=== PATIENT | female | born 1990 | race Caucasian/White ===

== ENCOUNTER → 2016-06-01 | Outpatient (CLI) | payer BC | LOC: MOB LAB 10:51 | PROVIDERS: ATTEND Obstetrics & Gynecology | DX: Z36 Encounter for antenatal screening of mother (principal) | CPT/HCPCS: 87491; 87591 ==

== ENCOUNTER → 2016-06-07 | Outpatient (CLI) | payer BC ==
--- NOTE | 2016-06-07 12:18 | DI ---
OBSTETRICAL ULTRASOUND, 06/07/2016 9:55 AM: Clinical History: Antepartum screening. Previous Exam: None at this facility for this . ADJUSTED DATE FROM EARLY OBUS: 12/25/2015. There is a single live IUP currently in breech presentation. Amnionic fluid content is normal. activity is observed as follows: Cardiac and extremity. The placenta is anterior corpus and Grade 1. heart rate is 138 beats/minute and regular. There is a 3 vessel cord. A 4 chamber heart view is obtained. The aortic arch and descending aorta are normal. Views of the spine were not optimal becau se of the lie. BPD, HC, AC, and FL measurements are 51 mm, 213 mm, 184 mm, and 43 mm, respectiv osman. These measurements correspond to EGA values of 21 weeks 4 days, 23 weeks 3 days, 23 weeks 2 days and 24 weeks one day, respectively. Composite EGA is 23 weeks one day. The US EDC is 10/03/2016. EDC by adjusted date from early OBUS is 09/30/2016. Readin. Single live fetus with breech presentation and normal amniotic fluid content. Placenta is anterio r corpus and grade 1. 2. The composite EGA is 23 weeks one day with an ultrasound EDC of 10/03/2016. The EDC is 09/30/2016 a stone the adjusted LMP of 12/25/2015. 3. Scans of the spine are not optimal because of the lie. These images should be repeate d in order to complete the antepartum screening that is otherwise normal.
== END ==
LOC: US 09:47
PROVIDERS: ATTEND Obstetrics & Gynecology
DX: Z36 Encounter for antenatal screening of mother (principal); Z3A.23 23 weeks gestation of pregnancy
CPT/HCPCS: 76805

== ENCOUNTER → 2016-06-28 | Outpatient (CLI) | payer BC ==
[2016-06-28 09:44] VITALS: RESP 18
[2016-06-28 10:26] VITALS: TEMP 98.7
--- NOTE | 2016-06-28 10:29 | DI ---
US OB , LIMITED,06/28/2016 9:40 AM: Clinical History: Bleeding Previous Exam: None at this facility. Findings: Multiple grayscale and color Doppler sonographic images are obtained through the pelvis demonstrating a single live intrauterine gestation with detected Doppler heart tones of 142 beats per minute. A fo ur-chamber heart is noted. The placenta is anterior and within normal limits. The fetus lies in vertex presentation. The inferior margin of the placenta is normal and lies 10 cm from the internal cervical os. Impression: A single live intrauterine gestation without gross abnormalities.
[2016-06-28 10:57] LABS: HEMATOCRIT 38.5 % (37.0-47.0); MEAN CORPUSCULAR HEMOGLOBIN 30.4 PG (27-31); MEAN CORPUSCULAR HGB CONC 33.8 g/dL (33-37); MEAN PLATELET VOLUME 11.2 FL (7.4-12.2); RDW COEFFICIENT OF VARIATION 14.1 % (11.5-14.5); RED BLOOD COUNT 4.28 10^6/uL (4.20-5.40); WHITE BLOOD COUNT 9.09 10^3/uL (4.8-10.8)
[2016-06-28 11:10] LABS: ASPARTATE AMINO TRANSFERASE 23 IU/L (8-39); BILIRUBIN,TOTAL 0.3 mg/dL (0.3-1.2); BLOOD UREA NITROGEN 5 mg/dL (7-22); BUN/CREATININE RATIO 8.33 (6-20); CHLORIDE 106 meq/L (98-112); CREATININE 0.6 mg/dL (0.50-1.20); EST GLOMERULAR FILTRATION > 60 (>60 ml/min/1.73m(2)); GLUCOSE 70 mg/dL (78-110); POTASSIUM 3.8 meq/L (3.8-5.2); SODIUM 135 meq/L (135-145); TOTAL PROTEIN 6.3 g/dL (6.1-8.0)
--- NOTE | 2016-06-30 06:21 | PDOC(PROG) ---
Intake - - Reason for Visit/Chief Complaint: Bi-weekly NST Admitted From: Home - Estimated Due Date: 09/30/16 Gestational Age in Weeks and Days: 26 Weeks and 6 Days : 2 Para: 0 Number of Abortions (Spont./Elective): 1 - Labs Blood Type and Rh: A+ Hepatitis B Surface Antigen: Absent HIV: Negative Rubella Status: Immune VDRL/RPR: Absent Maternal - Vital Signs Last Taken Vital Signs: Vital Signs - Last Taken Temperature 98.7 F 06/28/16 10:25 Pulse Rate 88 06/28/16 10:25 Respiratory Rate 18 06/28/16 10:25 Blood Pressure 122/75 06/28/16 10:25 Pulse Ox 98 06/28/16 10:25 - Uterine Activity Uterine Contraction Monitor Mode: External Uterine Tone Measurement Phase: soft - Vaginal Discharge Vaginal Bleeding Amount: None Vaginal Discharge Amount: None Monitoring - Uterine Activity Uterine Contraction Monitor Mode: External Uterine Tone Measurement Phase: soft Results - Labs CBC and BMP: 06/28/16 10:00 06/28/16 10:00 - Bedside Testing Bedside Urine Ketone: Negative Bedside Urine Leukocytes Esterase: Large Bedside Urine Nitrite: Negative Bedside Urine Occult Blood: Large Bedside Urine Protein: Negative Bedside Specific [place]: 1.030 Assessment and Plan - Assessment / Plan Additional Assessment/Plan Details: Reassuring maternal and evaluation. No evidence for abruption. Discharge to home on pelvic rest. - Time Time Spent With Patient: Less Than 15 Minutes
== END ==
LOC: OBOP 08:54
PROVIDERS: ATTEND Obstetrics & Gynecology
DX: O26.892 Other specified pregnancy related conditions, second trimester (principal); R51 Headache; R10.11 Right upper quadrant pain; N93.9 Abnormal uterine and vaginal bleeding, unspecified; Z3A.20 20 weeks gestation of pregnancy
CPT/HCPCS: 59025; 76815; 80053; 81003; 83615; 84550; 85025; 99211

== ENCOUNTER → 2016-07-06 | Outpatient (CLI) | payer BC ==
--- NOTE | 2016-07-06 10:07 | DI ---
US OB GTE 14 WEEKS,07/06/2016 8:52 AM: Clinical History: Incomplete anatomic survey. Previous Exam: June 28, 2016 Findings: Multiple grayscale and color Doppler sonographic images are obtained through the pelvis to complete t he anatomic survey, and demonstrate a normal spine. There is grossly normal amniotic fluid level. There is normal activity. The cervix is long and closed measuring 4 cm in length. The placenta is anterior and grade 0 without visible defects. The fetus is in breech presentation. Detected Doppler heart tones measured 146 beats per minute. Impression: These images complete the anatomic survey.
== END ==
LOC: US 08:47
PROVIDERS: ATTEND Obstetrics & Gynecology
DX: Z36 Encounter for antenatal screening of mother (principal); Z3A.27 27 weeks gestation of pregnancy
CPT/HCPCS: 76805

== ENCOUNTER → 2016-07-12 | Outpatient (CLI) | payer BC | LOC: LAB 07:49 | PROVIDERS: ATTEND Obstetrics & Gynecology | DX: Z36 Encounter for antenatal screening of mother (principal); Z3A.28 28 weeks gestation of pregnancy | CPT/HCPCS: 36415; 82950 ==

== ENCOUNTER → 2016-08-30 | Outpatient (CLI) | payer BC, OTHER | LOC: MOB LAB 13:53 | PROVIDERS: ATTEND Obstetrics & Gynecology | DX: Z36 Encounter for antenatal screening of mother (principal); Z3A.35 35 weeks gestation of pregnancy | CPT/HCPCS: 87150 ==

== ENCOUNTER → 2016-09-21 | Outpatient (CLI) | payer BC, OTHER ==
[~2016-09-21] MED LIST: LIDOCAINE W/ SODIUM BICARB 0.5 ML SYR SUBD PRN; Lactated Ringers-OB Dept 2,000 ML ONE; NORMAL SALINE 10 ML SYRINGE FLUSH IVP PRN
[2016-09-21 14:14] VITALS: RESP 20; TEMP 98
[2016-09-21 14:37] LABS: HEMATOCRIT 45.8 % (37.0-47.0); HEMOGLOBIN 15.3 g/dL (12.0-16.0); MEAN CORPUSCULAR HEMOGLOBIN 30.2 PG (27-31); MEAN CORPUSCULAR HGB CONC 33.4 g/dL (33-37); MEAN CORPUSCULAR VOLUME 90.3 FL (81-99); MEAN PLATELET VOLUME 12.3 FL (7.4-12.2); RED BLOOD COUNT 5.07 10^6/uL (4.20-5.40)
[2016-09-21] MEDS: Lactated Ringers 1,000 ML PRIMARY IV SCH ×2 (14:39→15:36)
[2016-09-21 14:46] LABS: BLOOD UREA NITROGEN 13 mg/dL (7-22); CALCIUM 8.9 mg/dL (8.7-10.7); EST GLOMERULAR FILTRATION > 60 (>60 ml/min/1.73m(2)); SERUM ALBUMIN 3.7 g/dL (3.5-4.8); URIC ACID 9.3 mg/dl (2.5-6.2)
--- NOTE | 2016-09-24 05:53 | PDOC(PROG) ---
Intake - - Reason for Visit/Chief Complaint: Contractions, Nausea and Vomiting Admitted From: Home - Estimated Due Date: 09/30/16 Gestational Age in Weeks and Days: 39 Weeks and 1 Days Para: 0 Number of Abortions (Spont./Elective): 1 - Labs Blood Type and Rh: A+ Maternal - Vital Signs Last Taken Vital Signs: Vital Signs - Last Taken Temperature 98 F 09/21/16 14:09 Pulse Rate 94 09/21/16 16:14 Respiratory Rate 20 09/21/16 14:09 Blood Pressure 129/78 09/21/16 16:14 Pulse Ox 99 09/21/16 14:16 - Uterine Activity Uterine Contraction Monitor Mode: External Contraction Frequency(minutes): 4.5 Contraction Duration (seconds): 40-80 Uterine Contraction Pattern: Irregular Uterine Contraction Intensity: Mild - Vaginal Discharge Vaginal Bleeding Amount: Scant Vaginal Bleeding Description: Dark Red Vaginal Discharge Amount: None Monitoring - Uterine Activity Uterine Contraction Monitor Mode: External Contraction Frequency(minutes): 4.5 Contraction Duration (seconds): 40-80 Uterine Contraction Pattern: Irregular Uterine Contraction Intensity: Mild Results - Labs CBC and BMP: 09/21/16 14:35 09/21/16 14:35 - Bedside Testing Bedside Urine Ketone: Negative Bedside Urine Leukocytes Esterase: Small Bedside Urine Nitrite: Negative Bedside Urine Protein: 3+ Bedside Specific [place]: 1.030 Assessment and Plan - Assessment / Plan Additional Assessment/Plan Details: The patient was much improved after hydration. No signs of labor. NST is reactive. Labs normal. 24 hour urine protein ordered. Pt. discharged to home in good condition. - Time Time Spent With Patient: Less Than 15 Minutes
== END ==
LOC: OBOP 14:03 → OBIP 14:21 → UNDOADMIN 14:21 → UNDODISIN 17:13
PROVIDERS: ATTEND Obstetrics & Gynecology
DX: O60.03 Preterm labor without delivery, third trimester (principal); O26.893 Other specified pregnancy related conditions, third trimester; R11.2 Nausea with vomiting, unspecified; O13.3 Gestational [pregnancy-induced] hypertension without significant proteinuria, third trimester; Z3A.38 38 weeks gestation of pregnancy
CPT/HCPCS: 59025; 80053; 81003; 83615; 84550; 85025; 99211; J7120

== ENCOUNTER → 2016-09-23 | Outpatient (CLI) | payer BC, OTHER ==
[2016-09-24 13:24] LABS: 24 HOUR URINE TOTAL VOLUME 500 ML
== END ==
LOC: LAB 10:33
PROVIDERS: ATTEND Obstetrics & Gynecology
DX: O12.03 Gestational edema, third trimester (principal); Z3A.38 38 weeks gestation of pregnancy
CPT/HCPCS: 84156

== ENCOUNTER 2016-09-24 04:14 | Inpatient (IN) | payer BC, OTHER ==
[~2016-09-24 04:14] MED LIST changes: -LIDOCAINE W/ SODIUM BICARB 0.5 ML SYR SUBD PRN; -Lactated Ringers-OB Dept 2,000 ML ONE
[2016-09-24] MEDS ORDERED: ONDANSETRON 4 MG/2 ML VIAL IVP ONE (05:43)
[2016-09-24] MEDS ORDERED: HYDROcodone-APAP 5 MG -325 MG TABLET PO ONE (05:43)
[2016-09-24] MEDS ORDERED: Sodium Chloride 0.9% 50 ML IV ONE (05:49)
[2016-09-24 06:16] LABS: HEMATOCRIT 41.6 % (37.0-47.0); HEMOGLOBIN 14.3 g/dL (12.0-16.0); MEAN CORPUSCULAR HEMOGLOBIN 30.4 PG (27-31); MEAN CORPUSCULAR HGB CONC 34.4 g/dL (33-37); MEAN CORPUSCULAR VOLUME 88.5 FL (81-99); MEAN PLATELET VOLUME 12.3 FL (7.4-12.2); RED BLOOD COUNT 4.7 10^6/uL (4.20-5.40)
[2016-09-24] MEDS: Sodium Chloride 0.9% 1,000 ML PRIMARY IV ONE ×2 (06:22→06:44)
[2016-09-24] MEDS ORDERED: Sodium Chloride 0.9% 1,000 ML PRIMARY IV ONE (06:45)
[2016-09-24 07:41] LABS: BLOOD UREA NITROGEN 13 mg/dL (7-22); BUN/CREATININE RATIO 14.44 (6-20); CALCIUM 8.8 mg/dL (8.7-10.7); EST GLOMERULAR FILTRATION > 60 (>60 ml/min/1.73m(2)); SERUM ALBUMIN 3.2 g/dL (3.5-4.8); URIC ACID 9.8 mg/dl (2.5-6.2)
[2016-09-24] MEDS ORDERED: NALOXONE 0.4 MG/1 ML VIAL IVP PRN ×2 (09:22→10:50)
[2016-09-24] MEDS ORDERED: ePHEDrine Inj 5 MG in Normal Saline Flush 1 ML IVP PRN ×2 (09:22→10:50)
[2016-09-24] MEDS ORDERED: TERBUTALINE SULFATE 1 MG/1 ML SDV SUBCUT PRN ×2 (09:22→10:50)
[2016-09-24] MEDS ORDERED: CefOXitin Inj 2 GM in Sodium Chloride 0.9% 100 ML IV PRN ×2 (09:22→10:50)
[2016-09-24] MEDS ORDERED: Naloxone Inj 0.01 MG in Normal Saline Flush 1 ML IVP PRN ×2 (09:22→10:50)
[2016-09-24] MEDS ORDERED: METHYLERGONOVINE MALEATE 0.2 MG/1 ML VIAL IM PRN ×2 (09:22→10:50)
[2016-09-24] MEDS ORDERED: Phenylephrine Inj 50 MCG in Normal Saline Flush 0.5 ML IVP PRN ×2 (09:22→10:50)
[2016-09-24] MEDS ORDERED: OXYTOCIN 10 UNIT/1 ML IM PRN ×2 (09:22→10:50)
[2016-09-24] MEDS ORDERED: Nalbuphine Inj 20 MG/ML Ampule IVP PRN ×3 (09:22→22:35)
[2016-09-24] MEDS ORDERED: CALCIUM CARBONATE 500 MG (TUMS) CHEWABLE TABLET PO PRN ×3 (09:22→22:35)
[2016-09-24] MEDS ORDERED: NORMAL SALINE 10 ML SYRINGE FLUSH IVP PRN ×3 (09:22→22:35)
[2016-09-24] MEDS ORDERED: MISOPROSTOL 200 MCG TABLET RECTAL PRN ×2 (09:22→10:50)
[2016-09-24] MEDS ORDERED: Metoclopramide Inj 10 MG/2 ML VIAL IV PRN ×2 (09:22→10:50)
[2016-09-24] MEDS ORDERED: Carboprost Inj 250 MCG/ML AMP IM PRN ×3 (09:22→22:35)
[2016-09-24] MEDS ORDERED: BUTORPHANOL TARTRATE 2 MG/1 ML VIAL IVP PRN ×2 (09:22→10:50)
[2016-09-24] MEDS ORDERED: LIDOCAINE W/ SODIUM BICARB 0.5 ML SYR SUBD PRN ×2 (09:22→10:50)
[2016-09-24] MEDS ORDERED: fentaNYL Inj 100 MCG/2 ML VIAL IV PRN ×2 (09:22→10:50)
[2016-09-24] MEDS ORDERED: CITRIC ACID/SODIUM CITRATE 30 ML CUP PO PRN ×2 (09:22→10:50)
[2016-09-24] MEDS ORDERED: Lidocaine 1% 10 MG/ML - 20 ML VIAL SUBCUT PRN ×2 (09:22→10:50)
[2016-09-24] MEDS ORDERED: diphenhydrAMINE 50 MG/1 ML VIAL IVP PRN ×3 (09:22→22:35)
[2016-09-24] MEDS ORDERED: Famotidine Inj 20 MG in Normal Saline Flush 10 ML IVP PRN ×8 (09:22→10:50)
[2016-09-24] MEDS ORDERED: ONDANSETRON 4 MG/2 ML VIAL IVP PRN ×3 (09:22→22:35)
[2016-09-24] MEDS ORDERED: Oxytocin 20 Units + LR 1,000 ML IV SCH ×3 (09:30→12:15)
--- NOTE | 2016-09-24 09:38 | OB.PROGRES ---
Date and Time of Service: 09/24/16 @ 0930 Interval History: Pt is a 26 yo G1 at 39 1/7 weeks by early u/s who presented to labor and delivery around 0339 this morning c/o bilateral upper abdomen pain. She denies any MENDOZA, no increase in edema per nursing staff. She was no complaining of any contractions on admission. No vaginal bleeding or gushes of fluid. Baby has been active. Labs were ordered secondary to the pt's blood pressure being marginally elevated at 140s/80s and her abdominal pain. Objective - Cervical Exam Cervical Exam: /-2 per RN this morning. [place]: currently every 3 minutes Heart Rate: 135, moderate variability, no decels noted. Heart Rate Interpretation Category: Category I - Labs CBC and BMP: 09/24/16 05:50 09/24/16 05:50 Labs - Last 24 Hours: Laboratory Results 09/24/16 Range/Units 05:50 WBC 11.88 H (4.8-10.8) 10^3/uL RBC 4.70 (4.20-5.40) 10^6/uL Hgb 14.3 (12.0-16.0) g/dL Hct 41.6 (37.0-47.0) % MCV 88.5 (81-99) FL MCH 30.4 (27-31) PG MCHC 34.4 (33-37) g/dL RDW Std Deviation 44.5 (39-50) fL RDW Coeff of Abhilash 14.1 (11.5-14.5) % Plt Count 117 L (140-350) 10*3/uL MPV 12.3 H (7.4-12.2) FL Sodium 139 (135-145) meq/L Potassium 3.8 (3.8-5.2) meq/L Chloride 110 (98-112) meq/L Carbon Dioxide 17 L (23-33) meq/L Anion Gap 12 (5-20) BUN 13 (7-22) mg/dL Creatinine 0.9 (0.50-1.20) mg/dL Estimated GFR > 60 (>60 ml/min/1.73m(2)) BUN/Creatinine Ratio 14.44 (6-20) Glucose 70 L (78-110) mg/dL Calculated Osmolality 285.0 (267-292) mOsm/kg Uric Acid 9.8 H (2.5-6.2) mg/dl Calcium 8.8 (8.7-10.7) mg/dL Total Bilirubin 2.4 H D (0.3-1.2) mg/dL AST 274 H (8-39) IU/L ALT 238 H D (9-52) IU/L Alkaline Phosphatase 186 H (38-126) IU/L Lactate Dehydrogenase 1974 H (313-618) IU/L Total Protein 6.5 (6.1-8.0) g/dL Albumin 3.2 L (3.5-4.8) g/dL Globulin 3.3 (2.50-4.10) g/dL Albumin/Globulin Ratio 0.90 L (1.3-2.0) mg/g - Vital Signs Last Taken Vital Signs: Vital Signs - Last Taken Temperature 98.8 F 09/24/16 04:14 Pulse Rate 83 09/24/16 04:14 Respiratory Rate 22 09/24/16 04:14 Blood Pressure 143/87 09/24/16 04:14 Pulse Ox 100 09/24/16 04:14 Assessment and Plan - Patient Problems (1) HELLP syndrome (HELLP), third trimester Current Visit: Yes Status: Acute - Assessment / Plan Additional Assessment/Plan Details: -labs consistent with HELLP syndrome. Upon my review of these labs (which I was not aware of due to another delivery of mine), I immediately called Dr. Vazquez and notified him of the labs. He will discuss magnesium sulfate orders with the pt's nurse. Care was transferred to him at 0715 this morning by phone.
[2016-09-24] MEDS: Lactated Ringers-OB Dept 1,000 ML PRIMARY IV SCH ×3 (09:45→14:19)
[2016-09-24] MEDS ORDERED: Lactated Ringers-OB Dept 1,000 ML ONE (09:49)
[2016-09-24] MEDS ORDERED: fentaNYL Inj 100 MCG/2 ML VIAL IVP ONE (09:56)
[2016-09-24] MEDS ORDERED: LIDOCAINE W/ SODIUM BICARB 0.5 ML SYR SUBD ONE (09:57)
[2016-09-24] MEDS ORDERED: CALCIUM GLUCONATE 100 MG/1 ML - 10 ML IVP PRN ×2 (10:03→23:22)
[2016-09-24] MEDS ORDERED: Magnesium Sulfate 4gm (Premix) 4 GM in Premix 1 BAG IV ONE (10:03)
[2016-09-24] MEDS ORDERED: LIDOCAINE W/ SODIUM BICARB 0.5 ML SYR ONE (10:26)
[2016-09-24] MEDS ORDERED: Fent/Bupiv 2mcg/0.0625% Epid 250 ML ONE (10:41)
[2016-09-24] MEDS: Magnesium Sulfate (Premix) 500 ML IV SCH ×3 (10:44→20:50)
--- NOTE | 2016-09-24 10:44 | OB.PROGRES ---
Interval History: Yumiko presented this morning at 39 weeks EGA with bilateral upper abdominal pain and general malaise. She had relatively normal BP, but gestational hypertension panel revealed markedly elevated LFTs which had been normal two days ago. 24 hour urine protein was turned in yesterday and is pending. She was noted to be florina irregularly upon presentation and her cervix was dilated to 4 cm. She will be admitted for delivery and treatment of severe Pre eclampsia. Plan epidural analgesia followed by amniotomy and pitocin as needed. FHRT is category 1 at present. Objective - Labs CBC and BMP: 09/24/16 05:50 09/24/16 05:50 Labs - Last 24 Hours: Laboratory Results 09/24/16 Range/Units 05:50 WBC 11.88 H (4.8-10.8) 10^3/uL RBC 4.70 (4.20-5.40) 10^6/uL Hgb 14.3 (12.0-16.0) g/dL Hct 41.6 (37.0-47.0) % MCV 88.5 (81-99) FL MCH 30.4 (27-31) PG MCHC 34.4 (33-37) g/dL RDW Std Deviation 44.5 (39-50) fL RDW Coeff of Abhilash 14.1 (11.5-14.5) % Plt Count 117 L (140-350) 10*3/uL MPV 12.3 H (7.4-12.2) FL Sodium 139 (135-145) meq/L Potassium 3.8 (3.8-5.2) meq/L Chloride 110 (98-112) meq/L Carbon Dioxide 17 L (23-33) meq/L Anion Gap 12 (5-20) BUN 13 (7-22) mg/dL Creatinine 0.9 (0.50-1.20) mg/dL Estimated GFR > 60 (>60 ml/min/1.73m(2)) BUN/Creatinine Ratio 14.44 (6-20) Glucose 70 L (78-110) mg/dL Calculated Osmolality 285.0 (267-292) mOsm/kg Uric Acid 9.8 H (2.5-6.2) mg/dl Calcium 8.8 (8.7-10.7) mg/dL Total Bilirubin 2.4 H D (0.3-1.2) mg/dL AST 274 H (8-39) IU/L ALT 238 H D (9-52) IU/L Alkaline Phosphatase 186 H (38-126) IU/L Lactate Dehydrogenase 1974 H (313-618) IU/L Total Protein 6.5 (6.1-8.0) g/dL Albumin 3.2 L (3.5-4.8) g/dL Globulin 3.3 (2.50-4.10) g/dL Albumin/Globulin Ratio 0.90 L (1.3-2.0) mg/g - Vital Signs Last Taken Vital Signs: Vital Signs - Last Taken Temperature 98.8 F 09/24/16 04:14 Pulse Rate 83 09/24/16 04:14 Respiratory Rate 22 09/24/16 04:14 Blood Pressure 143/87 09/24/16 04:14 Pulse Ox 100 09/24/16 04:14
--- NOTE | 2016-09-24 11:07 | CRNA.PROCE ---
Central Neuraxis Block Placemt - - Safety Measures: Time Out Taken, Site Verified - - Type of Block: Epidural Reason for Block: Analgesia Moniters Used During Block: SPO2, NIBP Positioning: Sitting Skin Prep Used: ChloroPrep Draped: Yes Skin Infiltration - Enter Amount Used in Comment Field: 1% Xylocaine (mL): Yes ( skin stim) Spinal Needle Used: 18 Hustead 80 mm Local Anesthetic - Enter Amount Used in Comment Field: 1.5 % Xylocaine with Epinephrine 1:200,000 (mL): Yes (5ml) Number of Centimeters Catheter Threaded: 4 Bioclusive Dressing Applied: Yes
[2016-09-24] MEDS ORDERED: fentaNYL 2 MCG/BUPIVACAINE 0.0625%/NS 0.9% 250 ML BAG EPIDURAL SCH (11:15)
[2016-09-24 14:26] LABS: HEMATOCRIT 36.5 % (37.0-47.0); HEMOGLOBIN 12.6 g/dL (12.0-16.0); MEAN CORPUSCULAR HEMOGLOBIN 30.7 PG (27-31); MEAN CORPUSCULAR HGB CONC 34.5 g/dL (33-37); MEAN CORPUSCULAR VOLUME 88.8 FL (81-99); MEAN PLATELET VOLUME 10.4 FL (7.4-12.2); RED BLOOD COUNT 4.11 10^6/uL (4.20-5.40)
[2016-09-24 19:16] LABS: HEMATOCRIT 38.3 % (37.0-47.0); HEMOGLOBIN 13.1 g/dL (12.0-16.0); MEAN CORPUSCULAR HEMOGLOBIN 30.3 PG (27-31); MEAN CORPUSCULAR HGB CONC 34.2 g/dL (33-37); MEAN CORPUSCULAR VOLUME 88.7 FL (81-99); MEAN PLATELET VOLUME 11.8 FL (7.4-12.2); RED BLOOD COUNT 4.32 10^6/uL (4.20-5.40)
[2016-09-24 19:26] LABS: BLOOD UREA NITROGEN 10 mg/dL (7-22); BUN/CREATININE RATIO 11.11 (6-20); CALCIUM 7.7 mg/dL (8.7-10.7); EST GLOMERULAR FILTRATION > 60 (>60 ml/min/1.73m(2)); SERUM ALBUMIN 2.8 g/dL (3.5-4.8); URIC ACID 8.7 mg/dl (2.5-6.2)
[2016-09-24] MEDS: Oxytocin 20 Units + LR 1,000 ML IV SCH ×2 (20:57→22:30)
--- NOTE | 2016-09-24 21:28 | OB.DEL.SUM ---
Delivery Note Delivery Summary: The patient progressed well through active labor to C/C/+3. She pushed for a short time to of a viable female infant, Apgars 8/9, weight 5 lbs 14 oz, from OA position over a second degree vaginal/perineal laceration and a right sided vaginal laceration. There was a true knot in the cord. The placenta was manually extracted secondary to vigorous bleeding which then responded well to bimanual massage and IM Hemabate. Repair was made with 3-0 Vicryl Rapide in the usual manner. EBL 400 ml. There were no complications. Mother and baby tolerated delivery well. Will continue Magnesium prophylaxis for at least 24 hours depending on laboratory response to delivery of the baby.
[2016-09-24] MEDS ORDERED: LANOLIN HPA 40 GM TUBE TOPICAL PRN (22:35)
[2016-09-24] MEDS ORDERED: Ondansetron ODT Tab 4 MG TAB PO PRN (22:35)
[2016-09-24] MEDS ORDERED: ceFAZolin Inj 2gm (Premix) 2 GM in Dextrose 1 BAG IV ONE (22:35)
[2016-09-24] MEDS ORDERED: OXYTOCIN 10 UNIT/1 ML IM ONE (22:35)
[2016-09-24] MEDS ORDERED: ACETAMINOPHEN 325 MG TABLET PO PRN (22:35)
[2016-09-24] MEDS ORDERED: DIPH,PERTUSS,TET(ADACEL) VAC/PF 0.5 ML (Tdap) IM SCH (22:35)
[2016-09-24] MEDS ORDERED: diphenhydrAMINE 25 MG CAPSULE PO PRN (22:35)
[2016-09-24] MEDS ORDERED: GLYCERIN/WITCH HAZEL 1 BOX TOPICAL PRN (22:35)
[2016-09-24] MEDS ORDERED: BENZOCAINE/MENTHOL SPRAY 56 GM BOTTLE TOPICAL PRN (22:35)
[2016-09-24] MEDS ORDERED: HYDROcodone-APAP 5 MG -325 MG TABLET PO PRN (22:35)
[2016-09-24] MEDS ORDERED: MISOPROSTOL 200 MCG TABLET RECTAL ONE (22:35)
[2016-09-25] MEDS: Lactated Ringers-OB Dept 1,000 ML PRIMARY IV SCH (03:12)
[2016-09-25 06:00] LABS: HEMATOCRIT 31.4 % (37.0-47.0); HEMOGLOBIN 10.9 g/dL (12.0-16.0); MEAN CORPUSCULAR HEMOGLOBIN 30.6 PG (27-31); MEAN CORPUSCULAR HGB CONC 34.7 g/dL (33-37); MEAN CORPUSCULAR VOLUME 88.2 FL (81-99); MEAN PLATELET VOLUME 10.9 FL (7.4-12.2); RED BLOOD COUNT 3.56 10^6/uL (4.20-5.40)
[2016-09-25 06:14] LABS: BLOOD UREA NITROGEN 9 mg/dL (7-22); CALCIUM 6.7 mg/dL (8.7-10.7); EST GLOMERULAR FILTRATION > 60 (>60 ml/min/1.73m(2)); SERUM ALBUMIN 2.4 g/dL (3.5-4.8); URIC ACID 8.8 mg/dl (2.5-6.2)
[2016-09-25] MEDS: Magnesium Sulfate (Premix) 500 ML IV SCH (08:30)
[2016-09-25] MEDS: Prenatal Multivitamin Tab 1 TAB TAB PO SCH (08:30)
[2016-09-25] MEDS: DOCUSATE 100 MG CAPSULE PO SCH ×3 (08:30→21:01)
--- NOTE | 2016-09-25 08:42 | OB.PROGRES ---
Subjective Post Day: 1 Pain Management: PO Bridges Catheter: Yes Flatus: Yes Diet: Clear Liquids Ambulating: No Concerns / Additional Information: Pt. is feeling well this AM. Bleeding is minimal this AM. LFTs are improved this AM, though platelets remain 55K. BP remains normal. Plan to continue magnesium for 24 hours after delivery for seizure prophylaxis.
[2016-09-25 11:52] LABS: HEMATOCRIT 29.8 % (37.0-47.0); HEMOGLOBIN 10.2 g/dL (12.0-16.0); MEAN CORPUSCULAR HEMOGLOBIN 30.3 PG (27-31); MEAN CORPUSCULAR HGB CONC 34.2 g/dL (33-37); MEAN CORPUSCULAR VOLUME 88.4 FL (81-99); MEAN PLATELET VOLUME 11.4 FL (7.4-12.2); RED BLOOD COUNT 3.37 10^6/uL (4.20-5.40)
[2016-09-25] MEDS ORDERED: Sodium Chloride 0.9% 500 ML PRIMARY IV ONE (12:39)
[2016-09-25 15:50] LABS: HEMATOCRIT 27.2 % (37.0-47.0); HEMOGLOBIN 9.3 g/dL (12.0-16.0); MEAN CORPUSCULAR HEMOGLOBIN 30.4 PG (27-31); MEAN CORPUSCULAR HGB CONC 34.2 g/dL (33-37); MEAN CORPUSCULAR VOLUME 88.9 FL (81-99); MEAN PLATELET VOLUME 9.7 FL (7.4-12.2); RED BLOOD COUNT 3.06 10^6/uL (4.20-5.40)
[2016-09-25] MEDS: IBUPROFEN 800 MG TABLET PO PRN (23:30)
[2016-09-26] MEDS: IBUPROFEN 800 MG TABLET PO PRN ×2 (05:20→15:14)
[2016-09-26 05:46] LABS: HEMATOCRIT 26.7 % (37.0-47.0); HEMOGLOBIN 8.8 g/dL (12.0-16.0); MEAN CORPUSCULAR HEMOGLOBIN 29.6 PG (27-31); MEAN CORPUSCULAR VOLUME 89.9 FL (81-99); MEAN PLATELET VOLUME 10.8 FL (7.4-12.2); RED BLOOD COUNT 2.97 10^6/uL (4.20-5.40)
[2016-09-26 05:53] LABS: BLOOD UREA NITROGEN 12 mg/dL (7-22); BUN/CREATININE RATIO 13.33 (6-20); CALCIUM 6.7 mg/dL (8.7-10.7); EST GLOMERULAR FILTRATION > 60 (>60 ml/min/1.73m(2)); SERUM ALBUMIN 2.4 g/dL (3.5-4.8); URIC ACID 9.1 mg/dl (2.5-6.2)
[2016-09-26 07:18] VITALS: RESP 16; TEMP 98.4
[2016-09-26] MEDS: Prenatal Multivitamin Tab 1 TAB TAB PO SCH (08:07)
[2016-09-26] MEDS: DOCUSATE 100 MG CAPSULE PO SCH (08:07)
--- NOTE | 2016-09-26 10:56 | DCSUMMARY ---
Hospitalization Summary Admit Date: 09/24/16 Discharge Date: 09/26/16 Primary Diagnosis:: Term -Delivered Secondary Diagnosis:: Severe Pre-Eclampsia/HELLP Syndrome Delivery Type: Vaginal Hospital Course: The patient presented in early labor at 39 weeks. She c/o RUQ pain, so gestational hypertension panel was ordered despite relatively normal BP. She was noted to have markedly elevated LFTs and low platelets, both of which had been normal 48 hours previously. She was given magnesium seizure prophylaxis in labor and for 24 hours . She made good progress in labor and had a which was uncomplicated. Her platelets remained in the 50K range , precluding removal of her epidural catheter. Therefore, the 2 units of platelets which had been ordered for her during labor were administered , raising her platelet count above 100k where it remains today. Her catheter was removed. Her BP has remained in the normal range . Bleeding has been normal. She was discharged to home on PPD 2 in good condition. / Postop Complications: None Complications: None Exam - Vitals Vital Signs: Vital Signs Temperature 98.4 F Temperature Source Oral Pulse Rate [Pulse Oximeter] 81 Pulse Rate 81 Respiratory Rate [uterus] 20 Respiratory Rate 16 Blood Pressure [Left Arm] 105/69 Blood Pressure [Right Arm] 114/75 Blood Pressure 133/72 Pulse Ox 98 Oxygen Delivery Method Room Air Height 5 ft 8 in Weight 278 lb 6.4 oz
--- NOTE | 2016-09-26 10:59 | OB.PROGRES ---
Subjective Post Day: 2 Pain Management: PO Bridges Catheter: No Flatus: Yes Diet: Regular [place] Feeding Method: Exculsively Ambulating: Yes Concerns / Additional Information: Labs continue improving this AM. Platelets remain above 100K after platelet transfusion yesterday. BP is normal. The patient is feeling well and would like to go home today. Assesstment / Plan Assessment / Plan: PPD2. Pt. is steadily improving from HELLP Syndrome. She requests discharge today. Will discharge her to home and f/u next week for BP check.
== END 2016-09-26 15:35 | disposition home or self-care (01) | DRG 775 ==
LOC: OBOP 04:14 → OBIP 07:59
PROVIDERS: ADMIT Obstetrics & Gynecology; ATTEND Obstetrics & Gynecology
PROC: 0KQM0ZZ Repair Perineum Muscle, Open Approach (ICD-10-PCS; principal; 2016-09-24)
PROC: 10E0XZZ Delivery of Products of Conception, External Approach (ICD-10-PCS; principal; 2016-09-24)
DX: O14.24 HELLP syndrome, complicating childbirth (principal); O70.1 Second degree perineal laceration during delivery; Z3A.39 39 weeks gestation of pregnancy; Z37.0 Single live birth
CPT/HCPCS: 36415; 80053; 81003; 83615; 84550; 85025; 85027; 86850; 86900; 86901; 86922; J0610; J0690; J2405; J3010; J3490; J7030; J7040; J7120